=== PATIENT | female | born 1930 | race Caucasian/White ===

== ENCOUNTER 2016-03-28 09:45 | Emergency (ER) | payer MEDICARE ==
--- NOTE | 2016-03-28 10:36 | DIAGNOSTIC IMAGING REPORT ---
PROCEDURE: XR CHEST 1 VIEW INDICATION: CHEST PAIN TECHNIQUE: Portable AP view (1005 hours) COMPARISON: None. FINDINGS: Lungs are clear. Heart and mediastinum are normal. Thorax is normal. IMPRESSION: 1. Negative chest.
--- NOTE | 2016-03-28 14:01 | ED ORDER SUMMARY ---
..... Patient: LYNSEY DAY OrderSheet [facility] VisitID: [id number] [place] [address] 85y, F Registration Date/Time: 03/28/2016 ORDER SHEET Weight: 58.9 kg (stated) Allergies: No Known Drug Allergy GENERAL ORDERS: Chest 1V Urgent (10:03 03/28/2016 Tariq JIMENEZ) (Ack 10:08 Alleantiaouse ER Tech1) (10:11 NHouse ER Tech1) Machine Welder (Continuous) (10:03 03/28/2016 Tariq JIMENEZ) (10:20 JSimbeck R.N.) CBC w Diff Urgent (10:03/28/2016 Tariq JIMENEZ) (Ack 10:08 NEouse ER Tech1) (10:35 JSimbeck R.N.) CMP Urgent (10:03/28/2016 Tariq JIMENEZ) (Ack 10:08 NEouse ER Tech1) (10:36 JSimbeck R.N.) UA-Culture if indicated Urgent (10:04 03/28/2016 Tariq JIMENEZ) (Ack 10:08 NEouse ER TechEulalio) (10:56 JSimbeck R.N.) PT with INR Urgent (10:04 03/28/2016 Tariq JIMENEZ) (Ack 10:08 NEouse ER TechEulalio) (10:36 JSimbeck R.N.) PTT Urgent (10:03/28/2016 Tariq JIMENEZ) (Ack 10:08 NEouse ER TechEulalio) (10:36 JSimbeck R.N.) Amylase Urgent (10:03/28/2016 Tariq JIMENEZ) (Ack 10:08 NEouse ER TechEulalio) (10:36 JSimbeck R.N.) Lipase Urgent (10:03/28/2016 Tariq JIMENEZ) (Ack 10:08 NEouse ER TechEulalio) (10:36 JSimbeck R.N.) CPK Urgent (10:03/28/2016 Tariq JIMENEZ) (Ack 10:08 NEouse ER TechEulalio) (10:36 JSimbeck R.N.) Troponin-I Urgent (10:03/28/2016 Tariq JIMENEZ) (Ack 10:08 NHouse ER Tech1) (10:36 Sameck R.N.) Oxygen (2 L/min) (NC) (10:04 03/28/2016 Tariq JIMENEZ) (Ack 10:36 Sameck R.N.) (10:57 Sameck R.N.) Pulse oximeter (10:04 03/28/2016 Tariq JIMENEZ) (10:20 Nicki R.N.) EKG - ER Stat (10:04 03/28/2016 Tariq JIMENEZ) (10:08 LNations ER Tech1) MEDICATION ORDERS: Aspirin PO 325 mg (NOW) (10:04 03/28/2016 Tariq JIMENEZ) (10:35 Nicki R.N.) IV FLUIDS: IV Saline Lock (14:45 03/28/2016 DDean R.N. per protocol) (14:51 DDean R.N.) ORDER SHEET NOTES: [Electronically signed by Cas Matthew R.N. (17:06 03/28/2016)] [Electronically signed by Lloyd Morales MD (18:13 04/02/2016)] [Electronically locked/signed by Cas Matthew R.N. (17:06 03/28/2016)]
--- NOTE | 2016-03-28 14:01 | ED NURSING NOTES ---
Clinical Report - Nurses [facility] [address] [place] [address] 03/28/2016 9:47 [id number] Triage time 10:03. Acuity: LEVEL 3. Chief Complaint: (Left sided chest pain (ache) 4/10 onset last night, no change in pain with rest or activity.). 10:13 03/28/16. SEPSIS SCREEN: Sepsis Screen. Negative (no infection suspected/documented). LIZ COMA SCORE: Liz Coma Scale: 15- eyes open spontaneously (4); best verbal response- oriented x 4 (5); best motor response- obeys commands (6). --10:15 Cas Matthew R.N. 10:03 03/28/16. BP: 169/58. HR: 64. RR: 16. O2 saturation: 100% on room air. Temp: 98.2 F (oral). Pain level now: 05/28. --10:15 Cas Matthew R.N. Weight: 58.9 kg stated. Height/Length: 61 inches Per Patient. BMI: 24.5. --10:14 Cas Matthew R.N. Medications Metoprolol Succinate ER Oral. --10:08 Cas Matthew R.N. AmLODIPine Besylate Oral. --10:08 Cas Matthew R.N. Vicodin Oral. --10:09 Cas Matthew R.N. OxyCONTIN Oral. --10:09 Cas Matthew R.N. Diclofenac Oral. --10:09 Cas Matthew R.N. Valsartan Oral. --10:10 Cas Matthew R.N. Xanax Oral. --10:10 Cas Matthew R.N. Latanoprost Ophthalmic. --10:10 Cas Matthew R.N. Allergies No Known Drug Allergy. --10:06 Cas Matthew R.N. History Arrived by private vehicle. Historian: patient. Accompanied by family. ( States her eyes feel funny when she has the chest pain, but denies visual changes.). No difficulty breathing. PAST MEDICAL HX: Immunizations: (Flu Vaccine 2016). SOCIAL HX: Never smoker. No alcohol use or drug use. ABUSE ASSESSMENT: No report of abuse. --10:15 Cas Matthew R.N. PROBLEMS: Chest Pain. --10:06 Cas Matthew R.N. Degenerative Joint Disease. Pain. Hypertension. --10:11 Cas Matthew R.N. ADDITIONAL SURGERIES: Knee Surgery. --10:11 Cas Matthew R.N. Interventions ID band on patient. To treatment room. --10:15 Cas Matthew R.N. PHYSICAL ASSESSMENT late entry -10:15. Ambulatory to room. GENERAL / NEURO / PSYCH: Alert. Oriented X 4. Appears in no acute distress. ( Bilat hearing aids). HEENT: Mucous membranes are pink. RESPIRATORY: Respirations not labored. Chest nontender. Breath sounds within normal limits. ( denies SOB). CVS: Normal sinus rhythm noted. Heart sounds within normal limits. Pulses within normal limits. Capillary refill less than 2 seconds. GI / : Abdomen soft and nontender. EXTREMITIES: Lower extremity edema. 1+ bilat LE edema (she states this is her baseline). SKIN: Skin is warm and dry. Skin is non-tender. --11:02 Cas Matthew R.N. NURSING PROGRESS NOTES 10:19 03/28/16. monitor and storage bin tender, pulse oximeter and NIBP monitor placed on patient; diagnostic cardiac sonographer- Lead II and V5; monitor alarms on. Patient gowned. Head of bed elevated. Reassurance given. Two patient identifiers checked. Call light placed in reach. Side rails up x 1. Bed placed in lowest position. Brakes of bed on. Patient ready for evaluation- chart flagged. --10:19 Cas Matthew R.N. EKG time: (1024). EKG was ordered, performed by a tech and shown to the ED physician. --10:26 Jerrica Nicole ER Tech1 10:25 03/28/2016 Aspirin PO Tablets 162 mg given. Allergies verified and confirmed 5 rights. (Pt took 162mg at home today). --10:35 Cas Matthew R.N. 10:30 03/28/2016 Site #1 started via IV in the right antecubital space with an 18g angiocath, with aseptic technique and good blood return; one attempt. Blood drawn: rainbow set. Labeled in the presence of the patient and sent to the lab. Saline lock flushed with 10 mL saline. --10:39 Cas Matthew R.N. 10:30 03/28/16. HR: 65. RR: 16. O2 saturation: 99% on nasal cannula at 2 liters/minute. Pain level now: 05/28. --13:16 Cas Matthew R.N. 11:03/28/16. HR: 65. RR: 16. O2 saturation: 98% on nasal cannula at 2 liters/minute. Pain level now: 05/28. --13:17 Cas Matthew R.N. 11:30 03/28/16. BP: 137/57. HR: 64. RR: 16. O2 saturation: 99% on nasal cannula at 2 liters/minute. Pain level now: 05/28. --13:18 Cas Matthew R.N. 12:03/28/16. BP: 180/77. HR: 75. RR: 19. O2 saturation: 100% on nasal cannula at 2 liters/minute. Pain level now: 05/28. --13:19 Cas Matthew R.N. 12:30 03/28/16. BP: 135/88. HR: 74. RR: 15. O2 saturation: 96%. Pain level now: 05/28. --13:19 Cas Matthew R.N. 13:03/28/16. BP: 130/50. HR: 74. RR: 20. O2 saturation: 97% on nasal cannula at 2 liters/minute. Pain level now: 05/28. --13:20 Cas Matthew R.N. 13:20 03/28/16. Cardiac rhythm: normal sinus rhythm. Oxygen administered. monitor and storage bin tender, pulse oximeter and NIBP monitor placed on patient; diagnostic cardiac sonographer- Lead II and V5; monitor alarms on. Reassurance given. The patient is calm and resting quietly. Call light placed in reach. Side rails up x 1. Bed placed in lowest position. Brakes of bed on. --13:21 Cas Matthew R.N. 14:30 03/28/2016 Site #1 removed upon discharge. Bandaid applied. --14:43 Kyara Fung R.N. 14:25 first contact with pt. Pt sitting partially dressed on chair in room #11, in no acute distress. Daughter at bedside, waiting for discharge. --14:44 Kyara Fung R.N. <<STRICKEN ENTRY-- 10:30 03/28/2016 Site #2 started via IV in the right antecubital space with an 20g angiocath, with aseptic technique and good blood return. Saline lock flushed. --14:47 Kyara Fung R.N. --END STRIKE>> Other. duplicate --14:52 Kyara Fung R.N. 11:25 03/28/2016 Aspirin PO Response: no adverse reaction. --17:05 Cas Matthew R.N. 14:30 03/28/2016 IV Saline Lock Drip IV Discontinued: bag #1 STOPPED upon discharge. Total amount infused: 0 mL. IV patency established. IV site checked: no pain, redness, or swelling. IV flushed thoroughly. --14:51 Kyara Fung R.N. DISPOSITION / DISCHARGE 14:35. Condition at departure: improved and stable. No learning barriers present. Discharge instructions provided and reviewed with the patient and family. Reviewed medication(s) (cont home meds). Reviewed referrals (see PCP tremaine). Patient and family verbalized understanding. Written instructions provided in Japanese. The patient was discharged home and accompanied by family. She left the Emergency Department ambulatory and via private vehicle. Driving (daughter). --14:42 Kyara Fung R.N. 14:35 03/28/16. BP: 155/61. HR: 80. RR: 20. O2 saturation: 96%. Temp: deferred. Pain level now: 05/28. --14:42 Kyara Fung R.N. 14:35. LIZ COMA SCORE: [place] Coma Scale: 15- eyes open spontaneously (4); best verbal response- oriented x 4 (5); best motor response- obeys commands (6). --14:43 Kenton, Ramu Sparrow. Locked/Released at 03/28/2016 17:06 by Cas Matthew R.N.
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
--- NOTE | 2016-03-28 14:01 | ED ORDER SUMMARY ---
..... Patient: LYNSEY DAY OrderSheet [facility] VisitID: [id number] [place] [address] 85y, F Registration Date/Time: 03/28/2016 ORDER SHEET Weight: 58.9 kg (stated) Allergies: No Known Drug Allergy GENERAL ORDERS: Chest 1V Urgent (10:03 03/28/2016 Tariq JIMENEZ) (Ack 10:08 Neogrowthouse ER Tech1) (10:11 NHouse ER Tech1) Generator Mechanic (Continuous) (10:03 03/28/2016 Tariq JIMENEZ) (10:20 JSimbeck R.N.) CBC w Diff Urgent (10:03/28/2016 Tariq JIMENEZ) (Ack 10:08 MTouse ER Tech1) (10:35 JSimbeck R.N.) CMP Urgent (10:03/28/2016 Tariq JIMENEZ) (Ack 10:08 MTouse ER Tech1) (10:36 JSimbeck R.N.) UA-Culture if indicated Urgent (10:04 03/28/2016 Tariq JIMENEZ) (Ack 10:08 MTouse ER TechEulalio) (10:56 JSimbeck R.N.) PT with INR Urgent (10:04 03/28/2016 Tariq JIMENEZ) (Ack 10:08 MTouse ER TechEulalio) (10:36 JSimbeck R.N.) PTT Urgent (10:03/28/2016 Tariq JIMENEZ) (Ack 10:08 MTouse ER TechEulalio) (10:36 JSimbeck R.N.) Amylase Urgent (10:03/28/2016 Tariq JIMENEZ) (Ack 10:08 MTouse ER TechEulalio) (10:36 JSimbeck R.N.) Lipase Urgent (10:03/28/2016 Tariq JIMENEZ) (Ack 10:08 MTouse ER TechEulalio) (10:36 JSimbeck R.N.) CPK Urgent (10:03/28/2016 Tariq JIMENEZ) (Ack 10:08 MTouse ER TechEulalio) (10:36 JSimbeck R.N.) Troponin-I Urgent (10:03/28/2016 Tariq JIMENEZ) (Ack 10:08 NHouse ER Tech1) (10:36 Sameck R.N.) Oxygen (2 L/min) (NC) (10:04 03/28/2016 Tariq JIMENEZ) (Ack 10:36 Sameck R.N.) (10:57 Sameck R.N.) Pulse oximeter (10:04 03/28/2016 Tariq JIMENEZ) (10:20 Nicki R.N.) EKG - ER Stat (10:04 03/28/2016 Tariq JIMENEZ) (10:08 LNations ER Tech1) MEDICATION ORDERS: Aspirin PO 325 mg (NOW) (10:04 03/28/2016 Tariq JIMENEZ) (10:35 Nicki R.N.) IV FLUIDS: IV Saline Lock (14:45 03/28/2016 DDean R.N. per protocol) (14:51 DDean R.N.) ORDER SHEET NOTES: [Electronically signed by Cas Matthew R.N. (17:06 03/28/2016)] [Electronically signed by Lloyd Morales MD (18:13 04/02/2016)] [Electronically locked/signed by Cas Matthew R.N. (17:06 03/28/2016)]
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
--- NOTE | 2016-04-02 18:13 | ED MED RECONCILIATION SUMMARY ---
Patient: LYNSEY DAY Medication Reconciliation Report [facility] VisitID: [id number] [address] [place] [address] 85y, F Registration Date/Time: 03/28/2016 Weight: 58.9 kg Height/Length: 61 in. BMI: 24.5 ALLERGIES: No Known Drug Allergy The patient's Home Medications are listed below: CONTINUE TAKING THE FOLLOWING MEDICATIONS: AmLODIPine Besylate Oral Diclofenac Oral Latanoprost Ophthalmic Metoprolol Succinate ER Oral OxyCONTIN Oral Valsartan Oral Vicodin Oral Xanax Oral The source(s) of the original Home Medication information: Not obtained. The following Medications were given to the patient in the Emergency Department: Aspirin [PO] PO 162 mg, administered: 03/28/2016 10:25:00 AM The following Medications were prescribed to the patient: None.
--- NOTE | 2016-04-02 18:13 | ED MED RECONCILIATION SUMMARY ---
Patient: LYNSEY DAY Medication Reconciliation Report [facility] VisitID: [id number] [address] [place] [address] 85y, F Registration Date/Time: 03/28/2016 Weight: 58.9 kg Height/Length: 61 in. BMI: 24.5 ALLERGIES: No Known Drug Allergy The patient's Home Medications are listed below: CONTINUE TAKING THE FOLLOWING MEDICATIONS: AmLODIPine Besylate Oral Diclofenac Oral Latanoprost Ophthalmic Metoprolol Succinate ER Oral OxyCONTIN Oral Valsartan Oral Vicodin Oral Xanax Oral The source(s) of the original Home Medication information: Not obtained. The following Medications were given to the patient in the Emergency Department: Aspirin [PO] PO 162 mg, administered: 03/28/2016 10:25:00 AM The following Medications were prescribed to the patient: None.
--- NOTE | 2016-04-02 18:13 | ED MAR SUMMARY ---
..... Medication Administration Record [facility] [address] [place] [address] Patient: LYNSEY DAY Visit ID: [id number] 85y, F Weight: 58.9 kg Height/Length: 61 in BMI: 24.5 ALLERGIES: No Known Drug Allergy Given 10:25 03/28/2016 Cas Matthew R.N. Medication Administered: ASPIRIN [PO], Dose: 162 mg Tablets PO. Medication Ordered: Aspirin PO 325 mg (NOW).
--- NOTE | 2016-04-02 18:13 | ED MAR SUMMARY ---
..... Medication Administration Record Located Within [facility] [address] [place] [address] Patient: LYNSEY DAY Visit ID: [id number] 85y, F Weight: 58.9 kg Height/Length: 61 in BMI: 24.5 ALLERGIES: No Known Drug Allergy Given 10:25 03/28/2016 Cas Matthew R.N. Medication Administered: ASPIRIN [PO], Dose: 162 mg Tablets PO. Medication Ordered: Aspirin PO 325 mg (NOW).
--- NOTE | 2016-04-02 18:13 | ED DISCHARGE INSTRUCTIONS ---
Patient: LYNSEY DAY General Instructions [facility] VisitID: [id number] [place] [address] 85y, F Registration Date/Time: 03/28/2016 Chest pain. Anxiety reaction. INSTRUCTIONS No strenuous activity. Avoid stimulants (such as cigarettes, coffee, cold medicines, sinus medicines, street drugs). Warnings: Further evaluation is necessary. GENERAL WARNINGS: Return or contact your physician immediately if your condition worsens or changes unexpectedly, if not improving as expected, or if other problems arise. Your Current Medications: CONTINUE TAKING THE FOLLOWING MEDICATIONS: AmLODIPine Besylate Oral. Diclofenac Oral. Latanoprost Ophthalmic. Metoprolol Succinate ER Oral. OxyCONTIN Oral. Valsartan Oral. Vicodin Oral. Xanax Oral. Follow-up: Follow up with your doctor Dr. Tapia tomorrow. Call for an appointment. Follow up with a energy systems laboratory director- as recommended by your primary care physician. Understanding of the discharge instructions verbalized by patient and family. ADDITIONAL INFORMATION Chest Pain, Uncertain Cause Chest pain can happen for a number of reasons. Sometimes the cause can not be determined. If yourcondition does not seem serious, and your pain does not appear to be coming from your heart, your doctor may recommend watching it closely. Sometimes the signs of a serious problem take more time to appear. Therefore, watch for the warning signs listed below. Home care After your visit, follow these recommendations: Rest today and avoid strenuous activity. Take any prescribed medicine as directed. Follow-up care Follow up with your doctor or this facility as instructed or if you do not start to feel better within 24 hours. Call 911 Get immediate medical attention if any of the following occur: A change in the type of pain: if it feels different, becomes more severe, lasts longer, or begins to spread into your shoulder, arm, neck, jaw or back Shortness of breath or increased pain with breathing Weakness, dizziness, or fainting Rapid heart beat Get prompt medical attention Call your doctor right away if any of the following occur: Cough with dark colored sputum (phlegm) or blood Fever of 100.4F(38C) or higher, or as directed by your health care provider Swelling, pain or redness in one leg Stress Reaction Anxiety is the feeling we all get when we think something bad might happen. It is a normal response to stress and usually causes only a mild reaction. When anxiety becomes more severe, emotions may interfere with daily life. In some cases, you may not even be aware of what it is youre anxious about! During an anxiety reaction, you may feel like you are helpless, nervous, depressed or irritable. Your body may show signs of anxiety in many ways. You may experience dry mouth, shakiness, dizziness, weakness, trouble breathing, chest pressure, headache, nausea, diarrhea, tiredness, inability to sleep or sexual problems. Home Care: 1) Try to locate the sources of stress in your life. They may not be obvious! These may include: -- Daily hassles of life which pile up (traffic jams, missed appointments, car troubles, etc.) -- Major life changes, both good (new baby, job promotion) and bad (loss of job, loss of loved one) -- Overload: feeling that you have too many responsibilities and can't take care of all of them at once -- Feeling helpless, feeling that your problems are beyond what youre able to solve 2) Notice how your body reacts to stress. Learn to listen to your body signals. This will help you take action before the stress becomes severe. 3) When you can, do something about the source of your stress. (Avoid hassles, limit the amount of change that happens in your life at one time and take a break when you feel overloaded). 4) Unfortunately, many stressful situations cannot be avoided. It is necessary to learn HOW TO MANAGE STRESS better. There are many proven methods that will reduce your anxiety. These include simple things like exercise, good nutrition and adequate rest. Also, there are certain techniques that are helpful: relaxation and breathing exercises, visualization, biofeedback and meditation. For more information about this, consult your doctor or go to a local bookstore and review the many books and tapes available on this subject. Follow Up If you feel that your anxiety is not responding to self-help measures, contact your doctor or make an appointment with a counselor. Get Prompt Medical Attention if any of the following occur: -- Your symptoms get worse -- Chest pain or trouble breathing -- Severe headache not relieved by rest and mild pain reliever -- Rapid or irregular heartbeat, fainting You have been given the following additional information: Chest Pain, Uncertain Cause Anxiety Reaction No strenuous activity. (Electronically signed by Lloyd Morales MD 04/02/2016 18:13)
== END 2016-03-28 14:35 | disposition home or self-care (01) ==
LOC: ED SRH 09:45
DX: F41.1 Generalized anxiety disorder (principal); R07.9 Chest pain, unspecified; I10 Essential (primary) hypertension; Z79.899 Other long term (current) drug therapy
CPT/HCPCS: 90004; 90100; 90616; 92235; 92530; 92610; 94001; 94060; 95059